=== PATIENT | female | born 1950 | race Two or more races ===

== ENCOUNTER 2021-06-02 18:04 | Emergency (ER) | payer MEDICARE, OTHER ==
[~2021-06-02] VITALS: Ht 162.6 cm; Wt 136.1 kg
[~2021-06-02 18:04] MED LIST: ALLO300T2 PO; AMLO-496 PO; ASPI325T4 PO; BUME1TAB3 PO; CHLO25TA2 PO; DOXA2TAB PO; ESCI-28 PO; FOLITAB22 PO; LEV50T PO; MAGN400T40 PO; METO-159 PO; POTA10TA51 PO; VALS320T15 PO
[2021-06-02 20:19] VITALS: BP 141/54
== END 2021-06-02 20:47 | disposition home or self-care (01) ==
LOC: EDBD 18:04 → ER 18:08
DX: R21 Rash and other nonspecific skin eruption (principal); I11.0 Hypertensive heart disease with heart failure; I50.9 Heart failure, unspecified; E03.9 Hypothyroidism, unspecified; J44.9 Chronic obstructive pulmonary disease, unspecified; E11.9 Type 2 diabetes mellitus without complications; Z87.891 Personal history of nicotine dependence; Z90.89 Acquired absence of other organs; Z79.82 Long term (current) use of aspirin; Z79.899 Other long term (current) drug therapy

== ENCOUNTER 2023-01-22 19:42 | Inpatient (IN) | payer MEDICARE, OTHER ==
[~2023-01-22] VITALS: Ht 162.6 cm; Wt 146.0 kg
[~2023-01-22 19:42] MED LIST changes: -AMLO-496 PO; +AMLO1TAB23 PO; -DOXA2TAB PO; +DOXA2TAB84 PO; -ESCI-28 PO; +ESCI1TAB36 PO; +VALS320T PO; -VALS320T15 PO
[2023-01-22] MEDS ORDERED: methylPREDNISolone SOD SUCC 40 MG/ML VL IV ONE (20:30)
[2023-01-22] MEDS ORDERED: MORPHINE SULFATE 4 MG/ML SYR/VIAL IV ONE (20:30)
[2023-01-22] MEDS ORDERED: FUROSEMIDE 40 MG/4 ML VIAL IV ONE (20:30)
[2023-01-22] MEDS ORDERED: ASPirin 81 mg TAB PO ONE (20:30)
[2023-01-22] MEDS ORDERED: IPRATROPIUM BROM 0.5 MG/2.5ML INH SOL NEB ONE (20:30)
[2023-01-22] MEDS ORDERED: ONDANSETRON HCL 4 MG/2 ML VIAL IV ONE (20:30)
[2023-01-22] MEDS ORDERED: ALBUTEROL SULF 2.5 MG/0.5ML(0.5%) NEB SOLN NEB ONE (20:30)
[2023-01-22] MEDS ORDERED: VANCOMYCIN IV SCH (20:30)
[2023-01-22] MEDS ORDERED: LORazepam 2MG/ML-1ML VIAL IV ONE (20:45)
[2023-01-22 20:50] VITALS: PULSE 90; RESP 18; O2SAT 96
[2023-01-22] MEDS ORDERED: VANCOMYCIN 1GM/250ML 250 ML IV ONE (21:00)
[2023-01-22 21:23] LABS: Base Excess 6.7 mmol/L (-2.0-2.0)
[2023-01-22] MEDS: PIPERACILLIN-TAZO 4.5GM 100 ML IV SCH (21:37)
[2023-01-22 21:38] LABS: Basophils # (auto) 0 10 ^3/uL (0-0.2); Basophils % (auto) 0.4 % (0.0-2.0); Eosinophils # (auto) 0 10 ^3/uL (0-0.8); Eosinophils % (auto) 0.2 % (0.0-7.0); Hematocrit 30.6 % (36.0-46.0); Hemoglobin 9.7 g/dL (12.2-16.2); Lymphocytes # (auto) 1.2 10 ^3/uL (0.4-5.4); Lymphocytes % (auto) 14.4 % (10.0-50.0); Mean Corpuscular Hemoglobin 30.1 pg (28.0-32.0); Mean Corpuscular Hgb Conc. 31.6 g/dL (32.0-36.0); Mean Corpuscular Volume 95.2 fL (80.0-100.0); Monocytes # (auto) 0.5 10 ^3/uL (0-1.3); Monocytes % (auto) 5.9 % (0.0-12.0); Neutrophils # (auto) 6.7 10 ^3/uL (1.6-8.6); Neutrophils % (auto) 79.1 % (37.0-80.0); Red Blood Cells 3.21 10^6/uL (4.0-5.20); White Blood Cell 8.4 10^3/uL (4.4-10.8)
[2023-01-22 21:47] LABS: Urine Bacteria FEW /hpf (None Seen); Urine Blood Negative /uL (Negative); Urine Clarity Clear (Clear); Urine Color Straw (Yellow); Urine Protein, UAD Negative (Negative); Urine Specific Gravity 1.008 (1.001-1.035); Urine Urobilinogen Normal (Negative); Urine WBC <1 /hpf (0 - 5)
[2023-01-22 21:59] LABS: Alanine Aminotransferase 11 U/L (7-40); Alkaline Phosphatase 111 U/L (46-116); Anion Gap 6.4 (5-15); Aspartate Aminotransferase 18 U/L (13-40); BUN/Creatinine Ratio 28.7 (10.0-20.0); Blood Urea Nitrogen 73 mg/dL (9-23); Calcium 9.2 mg/dL (8.7-10.4); Carbon Dioxide 30.6 mmol/L (20-30); Chloride 100 mmol/L (98-107); Glucose 96 mg/dL (74-106); Magnesium 2.6 mg/dL (1.6-2.6); Potassium 4.6 mmol/L (3.5-5.1); Sodium 137 mmol/L (136-145)
[2023-01-22 22:00] LABS: Albumin 4.3 g/dL (3.2-4.8); Bilirubin, Total 0.3 mg/dL (0.2-1.0); Total Protein 7.3 g/dL (5.7-8.2)
[2023-01-22 22:02] LABS: INR 1.07 (0.9-1.15); Partial Thromboplastin Time 32.2 SEC (24.5-34.5); Prothrombin Time 11.2 sec (9.3-11.8)
[2023-01-23] VITALS (12 sets, daily range): BP systolic 117–137; BP diastolic 50–66; PULSE 66–90; RESP 12–98; TEMP 97.8–98.7; O2SAT 91–98
[2023-01-23] MEDS ORDERED: VANCOMYCIN PER PHARMACY 0 MG IV SCH (00:45)
[2023-01-23] MEDS ORDERED: ONDANSETRON HCL 4 MG/2 ML VIAL IV PRN (00:45)
[2023-01-23] MEDS ORDERED: IPRATROPIUM BROM 0.5 MG/2.5ML INH SOL NEB PRN (00:45)
[2023-01-23] MEDS ORDERED: ALBUTEROL SULF 2.5 MG/0.5ML(0.5%) NEB SOLN NEB PRN (00:45)
[2023-01-23] MEDS ORDERED: ACETAMINOPHEN 325 MG TAB PO PRN (00:45)
[2023-01-23] MEDS ORDERED: MORPHINE SULFATE INJ 2 MG/ml SYRG IV PRN (00:45)
[2023-01-23] MEDS ORDERED: NITROGLYCERIN 0.4 MG SL TAB SL PRN (00:45)
[2023-01-23] MEDS: HYDROcodone-ACET 5/325MG TAB PO PRN ×2 (03:17→08:37)
[2023-01-23] MEDS: ACCU-CHEK COMFORT CURVE STRIP VI SCH ×4 (06:00→21:56)
[2023-01-23] MEDS: LEVOTHYROXINE SODIUM 50 MCG TAB PO SCH (06:20)
[2023-01-23] MEDS: FUROSEMIDE 20 MG/2 ML VIAL IV SCH ×2 (06:52→17:44)
[2023-01-23] MEDS: PIPERACILLIN-TAZO 4.5GM 100 ML IV SCH ×2 (06:52→18:34)
[2023-01-23] MEDS: InsuLIN REG 1unit/0.01ml Soln (100units/ml) SC SCH ×3 (06:54→17:44)
[2023-01-23] MEDS: PANTOPRAZOLE 40 MG TAB PO SCH (08:36)
[2023-01-23] MEDS: METOPROLOL TARTRATE 50 MG TAB PO SCH ×2 (08:37→21:56)
[2023-01-23] MEDS: methylPREDNISolone SOD SUCC 40 MG/ML VL IV SCH ×2 (08:38→21:55)
[2023-01-23] MEDS: amLODIPine BESYLATE 5 MG TAB PO SCH (08:38)
[2023-01-23] MEDS: VALSARTAN 80 MG TAB PO SCH (09:05)
[2023-01-23] MEDS ORDERED: BUMETANIDE 1 MG TAB PO SCH (10:00)
[2023-01-23] MEDS ORDERED: VANCOMYCIN 1GM/250ML 250 ML IV ONE ×2 (10:15→16:45)
[2023-01-23] MEDS ORDERED: IBUP-1455 PO (11:36)
[2023-01-23] MEDS ORDERED: GAB100C PO (11:36)
[2023-01-23 11:51] LABS: Basophils # (auto) 0 10 ^3/uL (0-0.2); Basophils % (auto) 0.1 % (0.0-2.0); Eosinophils # (auto) 0 10 ^3/uL (0-0.8); Hematocrit 29.3 % (36.0-46.0); Hemoglobin 9.2 g/dL (12.2-16.2); Lymphocytes # (auto) 0.5 10 ^3/uL (0.4-5.4); Lymphocytes % (auto) 4.2 % (10.0-50.0); Mean Corpuscular Hemoglobin 30.2 pg (28.0-32.0); Mean Corpuscular Hgb Conc. 31.5 g/dL (32.0-36.0); Mean Corpuscular Volume 96.1 fL (80.0-100.0); Monocytes # (auto) 0.1 10 ^3/uL (0-1.3); Monocytes % (auto) 0.8 % (0.0-12.0); Neutrophils # (auto) 10.3 10 ^3/uL (1.6-8.6); Neutrophils % (auto) 94.9 % (37.0-80.0); Red Blood Cells 3.05 10^6/uL (4.0-5.20); Red Cell Distribution Width 15.1 % (11.8-14.3); White Blood Cell 10.9 10^3/uL (4.4-10.8)
[2023-01-23 12:11] LABS: Alanine Aminotransferase 11 U/L (7-40); Albumin 4.1 g/dL (3.2-4.8); Alkaline Phosphatase 99 U/L (46-116); Calcium 8.9 mg/dL (8.5-10.1); Carbon Dioxide 29.7 mmol/L (20-30); Chloride 96 mmol/L (98-107)
[2023-01-23 12:12] LABS: Anion Gap 7.3 (5-15); Aspartate Aminotransferase 12 U/L (13-40); BUN/Creatinine Ratio 28.1 (10.0-20.0); Bilirubin, Total 0.3 mg/dL (0.2-1.0); Blood Urea Nitrogen 74 mg/dL (9-23); Magnesium 2.4 mg/dL (1.6-2.6); Potassium 5.5 mmol/L (3.5-5.1); Sodium 133 mmol/L (136-145); Total Protein 7.2 g/dL (5.7-8.2)
[2023-01-23 12:21] LABS: Glucose 435 mg/dL (74-106)
[2023-01-23] MEDS ORDERED: INSULIN LANTUS (GLARGINE) 1 /0.01ml (100units/ml) SC ONE (13:45)
[2023-01-23] MEDS ORDERED: DEXTROSE (50%) 50ML SYRG IV PRN (13:45)
[2023-01-23] MEDS ORDERED: SODIUM ZIRCONIUM CYCL 10 GM PAK PO ONE (13:45)
[2023-01-23] MEDS: HYDROcodone-ACET 7.5/325MG TAB PO PRN (21:01)
[2023-01-23] MEDS ORDERED: TEMAZEPAM 15 MG CAP PO PRN (21:15)
[2023-01-23] MEDS ORDERED: InsuLIN REG 1unit/0.01ml Soln (100units/ml) SC SCH (22:00)
[2023-01-23] MEDS: ALBUTEROL SULF 2.5 MG/0.5ML(0.5%) NEB SOLN NEB PRN (22:15)
[2023-01-24] VITALS (12 sets, daily range): BP systolic 133–143; BP diastolic 55–68; PULSE 57–70; RESP 16–100; TEMP 97.7–97.8; O2SAT 90–97
[2023-01-24] MEDS: HYDROcodone-ACET 7.5/325MG TAB PO PRN ×2 (02:38→19:07)
[2023-01-24] MEDS ORDERED: PIPERACILLIN-TAZOB 3.375GM 100 ML IV SCH (06:00)
[2023-01-24] MEDS: FUROSEMIDE 20 MG/2 ML VIAL IV SCH ×2 (06:00→19:07)
[2023-01-24] MEDS: LEVOTHYROXINE SODIUM 50 MCG TAB PO SCH (06:08)
[2023-01-24] MEDS: ACCU-CHEK COMFORT CURVE STRIP VI SCH ×4 (06:08→22:03)
[2023-01-24] MEDS: InsuLIN REG 1unit/0.01ml Soln (100units/ml) SC SCH ×4 (06:12→22:17)
[2023-01-24] MEDS ORDERED: INSULIN LANTUS (GLARGINE) 1 /0.01ml (100units/ml) SC SCH (07:00)
[2023-01-24] MEDS: ALBUTEROL SULF 2.5 MG/0.5ML(0.5%) NEB SOLN NEB SCH ×3 (07:18→19:19)
[2023-01-24] MEDS: IPRATROPIUM BROM 0.5 MG/2.5ML INH SOL NEB SCH ×3 (07:18→19:19)
[2023-01-24 07:40] LABS: Basophils # (auto) 0 10 ^3/uL (0-0.2); Basophils % (auto) 0.1 % (0.0-2.0); Eosinophils # (auto) 0 10 ^3/uL (0-0.8); Hemoglobin 8.8 g/dL (12.2-16.2); Lymphocytes # (auto) 0.5 10 ^3/uL (0.4-5.4); Lymphocytes % (auto) 3.6 % (10.0-50.0); Mean Corpuscular Hemoglobin 31.3 pg (28.0-32.0); Mean Corpuscular Hgb Conc. 32.5 g/dL (32.0-36.0); Mean Corpuscular Volume 96.1 fL (80.0-100.0); Monocytes # (auto) 0.3 10 ^3/uL (0-1.3); Monocytes % (auto) 2.2 % (0.0-12.0); Neutrophils # (auto) 14.4 10 ^3/uL (1.6-8.6); Neutrophils % (auto) 94.1 % (37.0-80.0); Red Blood Cells 2.81 10^6/uL (4.0-5.20); White Blood Cell 15.3 10^3/uL (4.4-10.8)
[2023-01-24 08:21] LABS: Alanine Aminotransferase 13 U/L (7-40); Albumin 4.1 g/dL (3.2-4.8); Alkaline Phosphatase 91 U/L (46-116); Anion Gap 6.6 (5-15); Aspartate Aminotransferase 13 U/L (13-40); BUN/Creatinine Ratio 29.5 (10.0-20.0); Calcium 8.9 mg/dL (8.5-10.1); Carbon Dioxide 29.4 mmol/L (20-30); Chloride 96 mmol/L (98-107); Cholesterol 118 mg/dL (< 200); Glucose 318 mg/dL (74-106); HDL Cholesterol 39 mg/dL (40-59); LDL Cholesterol 61 mg/dL (< 100); Magnesium 2.4 mg/dL (1.6-2.6); Potassium 5.5 mmol/L (3.5-5.1); Sodium 132 mmol/L (136-145); Triglycerides 85 mg/dL (< 150)
[2023-01-24 08:22] LABS: Bilirubin, Total 0.2 mg/dL (0.2-1.0); Total Protein 7.1 g/dL (5.7-8.2)
[2023-01-24 08:25] LABS: Blood Urea Nitrogen 88 mg/dL (9-23)
[2023-01-24 08:28] LABS: COVID19 ANTIGEN SOFIA FIA NEGATIVE (NEGATIVE)
[2023-01-24 08:36] LABS: Rapid Influenza A Negative (Negative); Rapid Influenza B Negative (Negative)
[2023-01-24] MEDS: SODIUM ZIRCONIUM CYCL 10 GM PAK PO SCH ×3 (09:12→22:11)
[2023-01-24] MEDS: METOPROLOL TARTRATE 50 MG TAB PO SCH ×2 (12:14→22:00)
[2023-01-24] MEDS: amLODIPine BESYLATE 5 MG TAB PO SCH (12:14)
[2023-01-24] MEDS: CITALOPRAM HYDROBR 20 MG TAB PO SCH (12:14)
[2023-01-24] MEDS: VALSARTAN 80 MG TAB PO SCH (12:15)
[2023-01-24] MEDS: PANTOPRAZOLE 40 MG TAB PO SCH (12:15)
[2023-01-24] MEDS: methylPREDNISolone SOD SUCC 40 MG/ML VL IV SCH ×2 (12:15→22:00)
[2023-01-24] MEDS ORDERED: DEXTROSE (50%) 50ML SYRG IV PRN (15:30)
[2023-01-24] MEDS: CEFEPIME 2GM/50ML NS 50 ML IV SCH (19:08)
[2023-01-24] MEDS ORDERED: LINEZOLID 600MG/300ML 300 ML IV SCH ×2 (22:00)
[2023-01-25] VITALS (14 sets, daily range): BP systolic 101–141; BP diastolic 38–62; PULSE 54–70; RESP 17–20; TEMP 97.4–98; O2SAT 90–98
[2023-01-25] MEDS: LINEZOLID 600MG/300ML 300 ML IV SCH ×2 (00:32→13:00)
[2023-01-25 05:51] LABS: Basophils # (auto) 0 10 ^3/uL (0-0.2); Basophils % (auto) 0.1 % (0.0-2.0); Eosinophils # (auto) 0 10 ^3/uL (0-0.8); Hematocrit 28.4 % (36.0-46.0); Hemoglobin 9.2 g/dL (12.2-16.2); Lymphocytes # (auto) 0.5 10 ^3/uL (0.4-5.4); Lymphocytes % (auto) 3.6 % (10.0-50.0); Mean Corpuscular Hemoglobin 30.7 pg (28.0-32.0); Mean Corpuscular Hgb Conc. 32.3 g/dL (32.0-36.0); Mean Corpuscular Volume 95.2 fL (80.0-100.0); Monocytes # (auto) 0.3 10 ^3/uL (0-1.3); Monocytes % (auto) 1.7 % (0.0-12.0); Neutrophils # (auto) 14.1 10 ^3/uL (1.6-8.6); Neutrophils % (auto) 94.6 % (37.0-80.0); Red Blood Cells 2.98 10^6/uL (4.0-5.20); Red Cell Distribution Width 14.6 % (11.8-14.3); White Blood Cell 14.9 10^3/uL (4.4-10.8)
[2023-01-25 06:06] LABS: Anion Gap 7.6 (5-15); Carbon Dioxide 30.4 mmol/L (20-30); Chloride 91 mmol/L (98-107); Potassium 4.7 mmol/L (3.5-5.1); Sodium 129 mmol/L (136-145)
[2023-01-25 06:07] LABS: Calcium 8.9 mg/dL (8.7-10.4)
[2023-01-25 06:12] LABS: BUN/Creatinine Ratio 30.8 (10.0-20.0); Glucose 348 mg/dL (74-106); Magnesium 2.5 mg/dL (1.6-2.6)
[2023-01-25] MEDS: SODIUM ZIRCONIUM CYCL 10 GM PAK PO SCH ×3 (06:26→21:09)
[2023-01-25] MEDS: HYDROcodone-ACET 7.5/325MG TAB PO PRN ×2 (06:27→21:27)
[2023-01-25 06:31] LABS: Blood Urea Nitrogen 108 mg/dL (9-23)
[2023-01-25] MEDS: FUROSEMIDE 20 MG/2 ML VIAL IV SCH (06:32)
[2023-01-25] MEDS: CEFEPIME 2GM/50ML NS 50 ML IV SCH ×2 (06:33→18:05)
[2023-01-25] MEDS: ALBUTEROL SULF 2.5 MG/0.5ML(0.5%) NEB SOLN NEB SCH ×3 (06:49→18:46)
[2023-01-25] MEDS: IPRATROPIUM BROM 0.5 MG/2.5ML INH SOL NEB SCH ×3 (06:49→18:46)
[2023-01-25] MEDS: ACCU-CHEK COMFORT CURVE STRIP VI SCH ×4 (06:59→18:04)
[2023-01-25] MEDS ORDERED: INSULIN LANTUS (GLARGINE) 1 /0.01ml (100units/ml) SC SCH (07:00)
[2023-01-25] MEDS: InsuLIN REG 1unit/0.01ml Soln (100units/ml) SC SCH ×5 (07:05→21:34)
[2023-01-25] MEDS: LEVOTHYROXINE SODIUM 50 MCG TAB PO SCH (07:16)
[2023-01-25] MEDS: PANTOPRAZOLE 40 MG TAB PO SCH (10:00)
[2023-01-25] MEDS: amLODIPine BESYLATE 5 MG TAB PO SCH (10:00)
[2023-01-25] MEDS: CITALOPRAM HYDROBR 20 MG TAB PO SCH (10:00)
[2023-01-25] MEDS: METOPROLOL TARTRATE 50 MG TAB PO SCH ×2 (10:00→21:32)
[2023-01-25] MEDS ORDERED: SODIUM CHLORIDE 0.9% 1,000 ML IV ONE (14:00)
[2023-01-26] VITALS (14 sets, daily range): BP systolic 124–139; BP diastolic 47–58; PULSE 46–98; RESP 16–26; TEMP 97.7–98.2; O2SAT 92–100
[2023-01-26] MEDS: LINEZOLID 600MG/300ML 300 ML IV SCH (01:18)
[2023-01-26] MEDS: CEFEPIME 2GM/50ML NS 50 ML IV SCH (06:18)
[2023-01-26] MEDS: INSULIN LANTUS (GLARGINE) 1 /0.01ml (100units/ml) SC SCH (06:20)
[2023-01-26] MEDS: ACCU-CHEK COMFORT CURVE STRIP VI SCH ×4 (06:20→22:25)
[2023-01-26] MEDS: InsuLIN REG 1unit/0.01ml Soln (100units/ml) SC SCH ×7 (06:21→22:26)
[2023-01-26] MEDS: LEVOTHYROXINE SODIUM 50 MCG TAB PO SCH (06:22)
[2023-01-26] MEDS: IPRATROPIUM BROM 0.5 MG/2.5ML INH SOL NEB SCH ×3 (06:33→19:49)
[2023-01-26] MEDS: ALBUTEROL SULF 2.5 MG/0.5ML(0.5%) NEB SOLN NEB SCH ×3 (06:33→19:49)
[2023-01-26 06:53] LABS: Basophils # (auto) 0 10 ^3/uL (0-0.2); Eosinophils # (auto) 0 10 ^3/uL (0-0.8); Hematocrit 27.1 % (36.0-46.0); Hemoglobin 8.8 g/dL (12.2-16.2); Lymphocytes # (auto) 0.9 10 ^3/uL (0.4-5.4); Lymphocytes % (auto) 6.7 % (10.0-50.0); Mean Corpuscular Hemoglobin 30.8 pg (28.0-32.0); Mean Corpuscular Hgb Conc. 32.7 g/dL (32.0-36.0); Mean Corpuscular Volume 94.2 fL (80.0-100.0); Monocytes # (auto) 1.1 10 ^3/uL (0-1.3); Neutrophils # (auto) 11.4 10 ^3/uL (1.6-8.6); Neutrophils % (auto) 85.3 % (37.0-80.0); Red Blood Cells 2.87 10^6/uL (4.0-5.20); Red Cell Distribution Width 14.6 % (11.8-14.3); White Blood Cell 13.4 10^3/uL (4.4-10.8)
[2023-01-26 07:05] LABS: Alanine Aminotransferase 12 U/L (7-40); Albumin 3.8 g/dL (3.2-4.8); Alkaline Phosphatase 77 U/L (46-116); Aspartate Aminotransferase 9 U/L (13-40); BUN/Creatinine Ratio 28.1 (10.0-20.0); Calcium 8.1 mg/dL (8.5-10.1); Chloride 93 mmol/L (98-107); Glucose 235 mg/dL (74-106); Magnesium 2.6 mg/dL (1.6-2.6); Potassium 4.3 mmol/L (3.5-5.1); Sodium 130 mmol/L (136-145)
[2023-01-26 07:06] LABS: Bilirubin, Total 0.2 mg/dL (0.2-1.0); Total Protein 6.6 g/dL (5.7-8.2)
[2023-01-26 07:24] LABS: Blood Urea Nitrogen 114 mg/dL (9-23)
[2023-01-26 07:34] LABS: Anion Gap 8 (5-15); Carbon Dioxide 29 mmol/L (20-30)
[2023-01-26] MEDS: methylPREDNISolone SOD SUCC 40 MG/ML VL IV SCH (10:23)
[2023-01-26] MEDS: CITALOPRAM HYDROBR 20 MG TAB PO SCH (10:23)
[2023-01-26] MEDS: PANTOPRAZOLE 40 MG TAB PO SCH (10:24)
[2023-01-26] MEDS: METOPROLOL TARTRATE 50 MG TAB PO SCH ×2 (10:24→22:24)
[2023-01-26] MEDS: amLODIPine BESYLATE 5 MG TAB PO SCH (10:24)
[2023-01-26] MEDS ORDERED: LACTULOSE 20Gm/30ML SOLN PO ONE (12:30)
[2023-01-26] MEDS ORDERED: levoFLOXacin 250MG 50 ML IV SCH (12:30)
[2023-01-26 15:42] LABS: % Iron Saturation 10.2 % (15-50)
[2023-01-26] MEDS ORDERED: SODIUM FERR GLUC 62.5MG/5ML 125 MG in SODIUM CHL 0.9% 100 ML IV ONE (17:00)
[2023-01-26] MEDS: FUROSEMIDE 100 MG/10ML VIAL IV SCH (18:14)
[2023-01-26] MEDS: CALCIUM ACETATE 667 MG CAP PO SCH (18:15)
[2023-01-26] MEDS ORDERED: EPOETIN ALFA-EPBX 4,000 UNIT/ML VIAL SC ONE (21:00)
[2023-01-27] VITALS (18 sets, daily range): BP systolic 129–140; BP diastolic 58–88; PULSE 54–74; RESP 16–22; TEMP 97.7–99.6; O2SAT 93–99
[2023-01-27 05:42] LABS: Alanine Aminotransferase 14 U/L (7-40); Albumin 3.8 g/dL (3.2-4.8); Alkaline Phosphatase 84 U/L (46-116); Anion Gap 6 (5-15); Aspartate Aminotransferase 9 U/L (13-40); BUN/Creatinine Ratio 27.9 (10.0-20.0); Bilirubin, Total 0.3 mg/dL (0.2-1.0); Carbon Dioxide 30 mmol/L (20-30); Chloride 95 mmol/L (98-107); Glucose 181 mg/dL (74-106); Magnesium 2.6 mg/dL (1.6-2.6); Potassium 4.2 mmol/L (3.5-5.1); Sodium 131 mmol/L (136-145); Total Protein 6.6 g/dL (5.7-8.2)
[2023-01-27 05:44] LABS: Calcium 8.2 mg/dL (8.7-10.4)
[2023-01-27] MEDS: ACCU-CHEK COMFORT CURVE STRIP VI SCH ×4 (06:02→21:42)
[2023-01-27 06:05] LABS: Basophils # (auto) 0 10 ^3/uL (0-0.2); Basophils % (auto) 0.1 % (0.0-2.0); Eosinophils # (auto) 0 10 ^3/uL (0-0.8); Eosinophils % (auto) 0.1 % (0.0-7.0); Hematocrit 27.8 % (36.0-46.0); Hemoglobin 9.2 g/dL (12.2-16.2); Lymphocytes # (auto) 0.8 10 ^3/uL (0.4-5.4); Lymphocytes % (auto) 5.7 % (10.0-50.0); Mean Corpuscular Hemoglobin 31.2 pg (28.0-32.0); Mean Corpuscular Volume 94.5 fL (80.0-100.0); Monocytes # (auto) 0.9 10 ^3/uL (0-1.3); Monocytes % (auto) 6.6 % (0.0-12.0); Neutrophils # (auto) 12.3 10 ^3/uL (1.6-8.6); Neutrophils % (auto) 87.5 % (37.0-80.0); Red Blood Cells 2.94 10^6/uL (4.0-5.20); Red Cell Distribution Width 14.5 % (11.8-14.3)
[2023-01-27] MEDS: INSULIN LANTUS (GLARGINE) 1 /0.01ml (100units/ml) SC SCH (06:05)
[2023-01-27] MEDS: InsuLIN REG 1unit/0.01ml Soln (100units/ml) SC SCH ×7 (06:08→22:10)
[2023-01-27] MEDS: LEVOTHYROXINE SODIUM 50 MCG TAB PO SCH (06:09)
[2023-01-27] MEDS: FUROSEMIDE 100 MG/10ML VIAL IV SCH ×2 (06:09→17:14)
[2023-01-27] MEDS: ALBUTEROL SULF 2.5 MG/0.5ML(0.5%) NEB SOLN NEB SCH ×3 (06:18→18:16)
[2023-01-27] MEDS: IPRATROPIUM BROM 0.5 MG/2.5ML INH SOL NEB SCH ×3 (06:18→18:16)
[2023-01-27 06:48] LABS: Blood Urea Nitrogen 97 mg/dL (9-23)
[2023-01-27] MEDS ORDERED: SODIUM CHL 0.9% 1000 ML BAG XX ONE (07:00)
[2023-01-27] MEDS ORDERED: FLEET ENEMA(ADULT) 135 ML PR ONE (08:15)
[2023-01-27] MEDS: ALBUTEROL SULF 2.5 MG/0.5ML(0.5%) NEB SOLN NEB PRN (09:45)
[2023-01-27] MEDS: METOPROLOL TARTRATE 50 MG TAB PO SCH ×2 (10:00→21:43)
[2023-01-27] MEDS: methylPREDNISolone SOD SUCC 40 MG/ML VL IV SCH (10:02)
[2023-01-27] MEDS: CALCIUM ACETATE 667 MG CAP PO SCH ×3 (10:02→17:14)
[2023-01-27] MEDS: CITALOPRAM HYDROBR 20 MG TAB PO SCH (10:02)
[2023-01-27] MEDS: PANTOPRAZOLE 40 MG TAB PO SCH (10:03)
[2023-01-27] MEDS: DOCUSATE SOD 100 MG CAP PO SCH ×2 (10:03→21:43)
[2023-01-27] MEDS: amLODIPine BESYLATE 5 MG TAB PO SCH (10:04)
[2023-01-27] MEDS: SODIUM FERR GLUC 62.5MG/5ML 125 MG in SODIUM CHL 0.9% 100 ML IV SCH (12:23)
[2023-01-27] MEDS: FLUTICASONE PROP NASAL SPR 0.05 % (50MCG) 16GM EACHNOSTRI SCH ×2 (12:23→21:43)
[2023-01-27 13:18] LABS: Base Excess -0.4 mmol/L (-2.0-2.0)
[2023-01-27] MEDS ORDERED: ALBUMIN 25% 100 ML IV ONE (13:30)
[2023-01-27] MEDS: LACTULOSE 20Gm/30ML SOLN PO PRN (14:31)
[2023-01-27] MEDS: levoFLOXacin 750MG 150 ML IV SCH (17:14)
[2023-01-27] MEDS ORDERED: EPOETIN ALFA-EPBX 4,000 UNIT/ML VIAL SC ONE (21:00)
[2023-01-28] VITALS (16 sets, daily range): BP systolic 112–158; BP diastolic 53–74; PULSE 55–78; RESP 14–22; TEMP 97.8–98.5; O2SAT 93–99
[2023-01-28] MEDS: LEVOTHYROXINE SODIUM 50 MCG TAB PO SCH (06:05)
[2023-01-28] MEDS: FUROSEMIDE 100 MG/10ML VIAL IV SCH ×2 (06:05→18:12)
[2023-01-28] MEDS: InsuLIN REG 1unit/0.01ml Soln (100units/ml) SC SCH ×7 (06:06→22:22)
[2023-01-28] MEDS: IPRATROPIUM BROM 0.5 MG/2.5ML INH SOL NEB SCH ×3 (06:15→18:24)
[2023-01-28] MEDS: ALBUTEROL SULF 2.5 MG/0.5ML(0.5%) NEB SOLN NEB SCH ×3 (06:15→18:24)
[2023-01-28] MEDS: INSULIN LANTUS (GLARGINE) 1 /0.01ml (100units/ml) SC SCH (06:15)
[2023-01-28] MEDS: ACCU-CHEK COMFORT CURVE STRIP VI SCH ×4 (06:16→22:06)
[2023-01-28 06:45] LABS: Basophils # (auto) 0 10 ^3/uL (0-0.2); Basophils % (auto) 0.2 % (0.0-2.0); Eosinophils # (auto) 0 10 ^3/uL (0-0.8); Hematocrit 27.7 % (36.0-46.0); Lymphocytes # (auto) 0.9 10 ^3/uL (0.4-5.4); Lymphocytes % (auto) 7.2 % (10.0-50.0); Mean Corpuscular Hemoglobin 30.6 pg (28.0-32.0); Mean Corpuscular Hgb Conc. 32.7 g/dL (32.0-36.0); Mean Corpuscular Volume 93.8 fL (80.0-100.0); Monocytes % (auto) 7.5 % (0.0-12.0); Neutrophils # (auto) 10.8 10 ^3/uL (1.6-8.6); Neutrophils % (auto) 85.1 % (37.0-80.0); Nucleated Red Blood Cells % 0.1 %; Red Blood Cells 2.95 10^6/uL (4.0-5.20); Red Cell Distribution Width 14.7 % (11.8-14.3); White Blood Cell 12.7 10^3/uL (4.4-10.8)
[2023-01-28 07:10] LABS: Alanine Aminotransferase 11 U/L (7-40); Albumin 3.8 g/dL (3.2-4.8); Alkaline Phosphatase 76 U/L (46-116); Aspartate Aminotransferase 8 U/L (13-40); BUN/Creatinine Ratio 30.5 (10.0-20.0); Calcium 8.5 mg/dL (8.5-10.1); Chloride 95 mmol/L (98-107); Glucose 171 mg/dL (74-106); Magnesium 2.4 mg/dL (1.6-2.6); Potassium 4.5 mmol/L (3.5-5.1); Sodium 131 mmol/L (136-145)
[2023-01-28 07:11] LABS: Bilirubin, Total 0.3 mg/dL (0.2-1.0); Total Protein 6.5 g/dL (5.7-8.2)
[2023-01-28 07:12] LABS: Anion Gap 11 (5-15); Carbon Dioxide 25 mmol/L (20-30)
[2023-01-28 07:16] LABS: Blood Urea Nitrogen 108 mg/dL (9-23)
[2023-01-28] MEDS: PANTOPRAZOLE 40 MG TAB PO SCH (09:41)
[2023-01-28] MEDS: CALCIUM ACETATE 667 MG CAP PO SCH (09:41)
[2023-01-28] MEDS: CITALOPRAM HYDROBR 20 MG TAB PO SCH (09:41)
[2023-01-28] MEDS: DOCUSATE SOD 100 MG CAP PO SCH ×2 (09:41→22:14)
[2023-01-28] MEDS: FLUTICASONE PROP NASAL SPR 0.05 % (50MCG) 16GM EACHNOSTRI SCH ×2 (09:42→22:24)
[2023-01-28] MEDS: METOPROLOL TARTRATE 50 MG TAB PO SCH ×2 (09:42→22:15)
[2023-01-28] MEDS: amLODIPine BESYLATE 5 MG TAB PO SCH (09:42)
[2023-01-28] MEDS ORDERED: HEPARIN SODIUM (PORCINE) 5000 UNITS/ML 1ML VIAL IV ONE (11:00)
[2023-01-28] MEDS: SODIUM FERR GLUC 62.5MG/5ML 125 MG in SODIUM CHL 0.9% 100 ML IV SCH (13:50)
[2023-01-28] MEDS: SEVELAMER 800 MG TAB PO SCH ×2 (13:50→18:12)
[2023-01-29] VITALS (15 sets, daily range): BP systolic 146–155; BP diastolic 51–71; PULSE 57–80; RESP 12–20; TEMP 98.4–99.6; O2SAT 91–99
[2023-01-29 06:02] LABS: Basophils # (auto) 0 10 ^3/uL (0-0.2); Basophils % (auto) 0.3 % (0.0-2.0); Eosinophils # (auto) 0.1 10 ^3/uL (0-0.8); Eosinophils % (auto) 0.5 % (0.0-7.0); Hematocrit 28.8 % (36.0-46.0); Hemoglobin 9.5 g/dL (12.2-16.2); Lymphocytes # (auto) 0.9 10 ^3/uL (0.4-5.4); Lymphocytes % (auto) 7.9 % (10.0-50.0); Mean Corpuscular Hgb Conc. 32.9 g/dL (32.0-36.0); Mean Corpuscular Volume 94.2 fL (80.0-100.0); Monocytes # (auto) 1.1 10 ^3/uL (0-1.3); Monocytes % (auto) 9.1 % (0.0-12.0); Neutrophils # (auto) 9.7 10 ^3/uL (1.6-8.6); Neutrophils % (auto) 82.2 % (37.0-80.0); Red Blood Cells 3.06 10^6/uL (4.0-5.20); Red Cell Distribution Width 14.8 % (11.8-14.3); White Blood Cell 11.8 10^3/uL (4.4-10.8)
[2023-01-29] MEDS: InsuLIN REG 1unit/0.01ml Soln (100units/ml) SC SCH ×7 (06:05→22:26)
[2023-01-29] MEDS: FUROSEMIDE 100 MG/10ML VIAL IV SCH ×2 (06:05→18:33)
[2023-01-29] MEDS: ACCU-CHEK COMFORT CURVE STRIP VI SCH ×4 (06:05→22:17)
[2023-01-29] MEDS: LEVOTHYROXINE SODIUM 50 MCG TAB PO SCH (06:05)
[2023-01-29] MEDS: INSULIN LANTUS (GLARGINE) 1 /0.01ml (100units/ml) SC SCH (06:06)
[2023-01-29 06:35] LABS: Anion Gap 9 (5-15); Carbon Dioxide 28 mmol/L (20-30); Chloride 99 mmol/L (98-107); Potassium 4.2 mmol/L (3.5-5.1); Sodium 136 mmol/L (136-145)
[2023-01-29 06:36] LABS: Calcium 8.6 mg/dL (8.7-10.4)
[2023-01-29 06:41] LABS: BUN/Creatinine Ratio 32.5 (10.0-20.0); Glucose 117 mg/dL (74-106)
[2023-01-29 06:46] LABS: Blood Urea Nitrogen 82 mg/dL (9-23)
[2023-01-29] MEDS: ALBUTEROL SULF 2.5 MG/0.5ML(0.5%) NEB SOLN NEB SCH ×3 (06:55→19:32)
[2023-01-29] MEDS: IPRATROPIUM BROM 0.5 MG/2.5ML INH SOL NEB SCH ×3 (06:55→19:32)
[2023-01-29] MEDS: SEVELAMER 800 MG TAB PO SCH ×3 (08:00→18:33)
[2023-01-29] MEDS: FLUTICASONE PROP NASAL SPR 0.05 % (50MCG) 16GM EACHNOSTRI SCH ×2 (10:55→22:16)
[2023-01-29] MEDS: amLODIPine BESYLATE 5 MG TAB PO SCH (10:55)
[2023-01-29] MEDS: PANTOPRAZOLE 40 MG TAB PO SCH (10:55)
[2023-01-29] MEDS: METOPROLOL TARTRATE 50 MG TAB PO SCH ×2 (10:56→22:17)
[2023-01-29] MEDS: CITALOPRAM HYDROBR 20 MG TAB PO SCH (10:56)
[2023-01-29] MEDS: DOCUSATE SOD 100 MG CAP PO SCH ×2 (10:56→22:17)
[2023-01-29] MEDS: HYDROcodone-ACET 7.5/325MG TAB PO PRN ×2 (11:09→22:17)
[2023-01-29] MEDS: SODIUM FERR GLUC 62.5MG/5ML 125 MG in SODIUM CHL 0.9% 100 ML IV SCH (13:19)
[2023-01-29] MEDS: levoFLOXacin 750MG 150 ML IV SCH (16:24)
[2023-01-29] MEDS: LACTULOSE 20Gm/30ML SOLN PO PRN (18:33)
[2023-01-30] VITALS (15 sets, daily range): BP systolic 125–157; BP diastolic 50–56; PULSE 56–83; RESP 13–18; TEMP 99–99.4; O2SAT 94–99
[2023-01-30 06:41] LABS: Basophils # (auto) 0 10 ^3/uL (0-0.2); Basophils % (auto) 0.1 % (0.0-2.0); Eosinophils # (auto) 0 10 ^3/uL (0-0.8); Eosinophils % (auto) 0.1 % (0.0-7.0); Hematocrit 29.6 % (36.0-46.0); Hemoglobin 9.6 g/dL (12.2-16.2); Mean Corpuscular Hemoglobin 31.2 pg (28.0-32.0); Mean Corpuscular Hgb Conc. 32.5 g/dL (32.0-36.0); Monocytes % (auto) 7.2 % (0.0-12.0); Neutrophils # (auto) 12.3 10 ^3/uL (1.6-8.6); Neutrophils % (auto) 85.6 % (37.0-80.0); Nucleated Red Blood Cells % 0.1 %; Red Blood Cells 3.09 10^6/uL (4.0-5.20); Red Cell Distribution Width 14.9 % (11.8-14.3); White Blood Cell 14.4 10^3/uL (4.4-10.8)
[2023-01-30] MEDS: FUROSEMIDE 100 MG/10ML VIAL IV SCH ×2 (06:41→17:19)
[2023-01-30] MEDS: ACCU-CHEK COMFORT CURVE STRIP VI SCH ×4 (06:41→21:30)
[2023-01-30] MEDS: LEVOTHYROXINE SODIUM 50 MCG TAB PO SCH (06:41)
[2023-01-30] MEDS: INSULIN LANTUS (GLARGINE) 1 /0.01ml (100units/ml) SC SCH (06:55)
[2023-01-30] MEDS: InsuLIN REG 1unit/0.01ml Soln (100units/ml) SC SCH ×7 (06:56→21:39)
[2023-01-30] MEDS: IPRATROPIUM BROM 0.5 MG/2.5ML INH SOL NEB SCH ×3 (06:56→18:01)
[2023-01-30] MEDS: ALBUTEROL SULF 2.5 MG/0.5ML(0.5%) NEB SOLN NEB SCH ×3 (06:56→18:01)
[2023-01-30] MEDS: HYDROcodone-ACET 7.5/325MG TAB PO PRN (07:43)
[2023-01-30] MEDS: SEVELAMER 800 MG TAB PO SCH ×3 (07:43→17:19)
[2023-01-30] MEDS ORDERED: LACTULOSE 20Gm/30ML SOLN PO ONE (09:15)
[2023-01-30] MEDS: CITALOPRAM HYDROBR 20 MG TAB PO SCH (09:36)
[2023-01-30] MEDS: PANTOPRAZOLE 40 MG TAB PO SCH (09:37)
[2023-01-30] MEDS: amLODIPine BESYLATE 5 MG TAB PO SCH (09:37)
[2023-01-30] MEDS: DOCUSATE SOD 100 MG CAP PO SCH ×2 (09:38→21:29)
[2023-01-30] MEDS: FLUTICASONE PROP NASAL SPR 0.05 % (50MCG) 16GM EACHNOSTRI SCH ×2 (09:38→21:29)
[2023-01-30] MEDS: METOPROLOL TARTRATE 50 MG TAB PO SCH ×2 (09:38→21:29)
[2023-01-30 11:32] LABS: Alkaline Phosphatase 72 U/L (46-116); Calcium 8.9 mg/dL (8.5-10.1); Carbon Dioxide 27 mmol/L (20-30); Glucose 201 mg/dL (74-106)
[2023-01-30 11:34] LABS: Aspartate Aminotransferase 56 U/L (13-40); Bilirubin, Total 0.4 mg/dL (0.2-1.0)
[2023-01-30 11:35] LABS: Total Protein 6.7 g/dL (5.7-8.2)
[2023-01-30] MEDS ORDERED: HYDROcodone-ACET 5/325MG TAB PO PRN (12:00)
[2023-01-30] MEDS ORDERED: cefTRIAXone 1GM/50ML D5W 50 ML IV ONE (12:00)
[2023-01-30] MEDS ORDERED: AMPICILLIN INJ 1 GM in SODIUM CHL 0.9% 100 ML IV SCH (12:00)
[2023-01-30] MEDS: SODIUM FERR GLUC 62.5MG/5ML 125 MG in SODIUM CHL 0.9% 100 ML IV SCH (12:10)
[2023-01-30 12:52] LABS: Hepatitis B Core IgM Negative; Hepatitis C Antibody Negative (Negative)
[2023-01-30] MEDS: ACETAMINOPHEN 325 MG TAB PO PRN (13:06)
[2023-01-30 13:07] LABS: Hepatitis B Surface Antigen Negative (Negative)
[2023-01-30 13:49] LABS: Protein, Urine 86.2 mg/dL (0.0-11.9)
[2023-01-30 13:50] LABS: Creatinine, Urine 40.8 mg/dL (30.0-125.0)
[2023-01-30 14:09] LABS: Urine Bacteria FEW /hpf (None Seen); Urine Blood 1+ /uL (Negative); Urine Clarity Clear (Clear); Urine Color Colorless (Yellow); Urine Hyaline Cast FEW /lpf (0 - 2); Urine Mucus FEW (None Seen); Urine Protein, UAD 1+ (Negative); Urine Specific Gravity 1.012 (1.001-1.035); Urine Urobilinogen Normal (Negative); Urine WBC 1 /hpf (0 - 5); Urine pH 5.5 (5.0-8.0)
[2023-01-30] MEDS: AMPICILLIN INJ 1 GM in SODIUM CHL 0.9% 100 ML IV SCH ×2 (15:33→21:29)
[2023-01-30 16:11] LABS: Albumin 3.9 g/dL (3.2-4.8); Anion Gap 12 (5-15); BUN/Creatinine Ratio 30.8 (10.0-20.0); Chloride 98 mmol/L (98-107); Potassium 3.5 mmol/L (3.5-5.1); Sodium 137 mmol/L (136-145)
[2023-01-30 16:12] LABS: Alanine Aminotransferase 9 U/L (7-40); Blood Urea Nitrogen 68 mg/dL (9-23)
[2023-01-30] MEDS: HYDROcodone-ACET 5/325MG TAB PO PRN (17:18)
[2023-01-31] VITALS (16 sets, daily range): BP systolic 135–166; BP diastolic 64–76; PULSE 58–96; RESP 13–20; TEMP 98.3–99.1; O2SAT 91–99
[2023-01-31] MEDS: HYDROcodone-ACET 5/325MG TAB PO PRN ×3 (00:12→21:29)
[2023-01-31] MEDS: AMPICILLIN INJ 1 GM in SODIUM CHL 0.9% 100 ML IV SCH ×3 (06:14→22:02)
[2023-01-31 06:15] LABS: Basophils # (auto) 0 10 ^3/uL (0-0.2); Basophils % (auto) 0.1 % (0.0-2.0); Eosinophils # (auto) 0.1 10 ^3/uL (0-0.8); Eosinophils % (auto) 0.3 % (0.0-7.0); Hematocrit 30.7 % (36.0-46.0); Hemoglobin 9.8 g/dL (12.2-16.2); Lymphocytes # (auto) 0.9 10 ^3/uL (0.4-5.4); Lymphocytes % (auto) 5.7 % (10.0-50.0); Mean Corpuscular Hemoglobin 30.4 pg (28.0-32.0); Mean Corpuscular Volume 95.2 fL (80.0-100.0); Monocytes # (auto) 1.1 10 ^3/uL (0-1.3); Monocytes % (auto) 6.5 % (0.0-12.0); Neutrophils # (auto) 14.4 10 ^3/uL (1.6-8.6); Neutrophils % (auto) 87.4 % (37.0-80.0); Nucleated Red Blood Cells % 0.1 %; Red Blood Cells 3.22 10^6/uL (4.0-5.20); Red Cell Distribution Width 14.7 % (11.8-14.3); White Blood Cell 16.5 10^3/uL (4.4-10.8)
[2023-01-31] MEDS: FUROSEMIDE 100 MG/10ML VIAL IV SCH ×2 (06:22→18:46)
[2023-01-31] MEDS: LEVOTHYROXINE SODIUM 50 MCG TAB PO SCH (06:22)
[2023-01-31] MEDS: IPRATROPIUM BROM 0.5 MG/2.5ML INH SOL NEB SCH ×3 (06:23→19:07)
[2023-01-31] MEDS: ALBUTEROL SULF 2.5 MG/0.5ML(0.5%) NEB SOLN NEB SCH ×3 (06:23→19:07)
[2023-01-31 06:30] LABS: Anion Gap 7 (5-15); Calcium 9.1 mg/dL (8.7-10.4); Carbon Dioxide 33 mmol/L (20-30); Chloride 99 mmol/L (98-107); Potassium 3.5 mmol/L (3.5-5.1); Sodium 139 mmol/L (136-145)
[2023-01-31] MEDS: InsuLIN REG 1unit/0.01ml Soln (100units/ml) SC SCH ×7 (06:33→21:57)
[2023-01-31] MEDS: ACCU-CHEK COMFORT CURVE STRIP VI SCH ×4 (06:33→21:56)
[2023-01-31] MEDS: INSULIN LANTUS (GLARGINE) 1 /0.01ml (100units/ml) SC SCH (06:33)
[2023-01-31 06:36] LABS: BUN/Creatinine Ratio 29.2 (10.0-20.0); Glucose 112 mg/dL (74-106)
[2023-01-31 06:37] LABS: Blood Urea Nitrogen 57 mg/dL (9-23); Magnesium 2.1 mg/dL (1.6-2.6)
[2023-01-31] MEDS: SEVELAMER 800 MG TAB PO SCH ×3 (08:24→18:00)
[2023-01-31] MEDS: cefTRIAXone 1GM/50ML D5W 50 ML IV SCH (08:24)
[2023-01-31] MEDS: DOCUSATE SOD 100 MG CAP PO SCH ×2 (11:56→21:29)
[2023-01-31] MEDS: FLUTICASONE PROP NASAL SPR 0.05 % (50MCG) 16GM EACHNOSTRI SCH ×2 (11:56→22:01)
[2023-01-31] MEDS: LACTULOSE 20Gm/30ML SOLN PO SCH ×4 (11:56→23:26)
[2023-01-31] MEDS: amLODIPine BESYLATE 5 MG TAB PO SCH (11:57)
[2023-01-31] MEDS: CITALOPRAM HYDROBR 20 MG TAB PO SCH (11:57)
[2023-01-31] MEDS: METOPROLOL TARTRATE 50 MG TAB PO SCH ×2 (11:57→21:30)
[2023-01-31] MEDS: PANTOPRAZOLE 40 MG TAB PO SCH (11:57)
[2023-01-31] MEDS ORDERED: LACTULOSE 20Gm/30ML SOLN PO PRN (12:45)
[2023-01-31] MEDS: SODIUM FERR GLUC 62.5MG/5ML 125 MG in SODIUM CHL 0.9% 100 ML IV SCH (13:20)
[2023-01-31] MEDS ORDERED: VALSARTAN 80 MG TAB PO ONE (16:45)
[2023-01-31] MEDS: MELATONIN 5 MG TAB PO SCH (21:29)
[2023-02-01] VITALS (15 sets, daily range): BP systolic 100–146; BP diastolic 51–64; PULSE 21–74; RESP 12–22; TEMP 98.4–98.9; O2SAT 91–100
[2023-02-01] MEDS: ALBUTEROL SULF 2.5 MG/0.5ML(0.5%) NEB SOLN NEB SCH ×4 (00:01→18:05)
[2023-02-01] MEDS: IPRATROPIUM BROM 0.5 MG/2.5ML INH SOL NEB SCH ×4 (00:02→18:05)
[2023-02-01] MEDS: ACETAMINOPHEN 325 MG TAB PO PRN (03:48)
[2023-02-01] MEDS: FUROSEMIDE 100 MG/10ML VIAL IV SCH ×2 (05:59→18:00)
[2023-02-01] MEDS: LEVOTHYROXINE SODIUM 50 MCG TAB PO SCH (05:59)
[2023-02-01] MEDS: HYDROcodone-ACET 5/325MG TAB PO PRN ×2 (05:59→14:07)
[2023-02-01] MEDS: AMPICILLIN INJ 1 GM in SODIUM CHL 0.9% 100 ML IV SCH ×3 (06:00→22:49)
[2023-02-01] MEDS: LACTULOSE 20Gm/30ML SOLN PO SCH (06:00)
[2023-02-01] MEDS: ACCU-CHEK COMFORT CURVE STRIP VI SCH ×4 (06:00→22:58)
[2023-02-01] MEDS: InsuLIN REG 1unit/0.01ml Soln (100units/ml) SC SCH ×7 (06:11→22:28)
[2023-02-01] MEDS: INSULIN LANTUS (GLARGINE) 1 /0.01ml (100units/ml) SC SCH (06:12)
[2023-02-01 06:39] LABS: Basophils # (auto) 0.1 10 ^3/uL (0-0.2); Basophils % (auto) 0.4 % (0.0-2.0); Eosinophils # (auto) 0 10 ^3/uL (0-0.8); Eosinophils % (auto) 0.2 % (0.0-7.0); Hematocrit 30.4 % (36.0-46.0); Hemoglobin 9.8 g/dL (12.2-16.2); Lymphocytes # (auto) 0.8 10 ^3/uL (0.4-5.4); Lymphocytes % (auto) 4.7 % (10.0-50.0); Mean Corpuscular Hemoglobin 30.9 pg (28.0-32.0); Mean Corpuscular Hgb Conc. 32.2 g/dL (32.0-36.0); Monocytes # (auto) 1.2 10 ^3/uL (0-1.3); Monocytes % (auto) 6.6 % (0.0-12.0); Neutrophils # (auto) 15.9 10 ^3/uL (1.6-8.6); Neutrophils % (auto) 88.1 % (37.0-80.0); Nucleated Red Blood Cells % 0.1 %; Red Blood Cells 3.17 10^6/uL (4.0-5.20); Red Cell Distribution Width 14.9 % (11.8-14.3); White Blood Cell 18.1 10^3/uL (4.4-10.8)
[2023-02-01 06:50] LABS: Chloride 97 mmol/L (98-107); Potassium 3.2 mmol/L (3.5-5.1); Sodium 137 mmol/L (136-145)
[2023-02-01 06:51] LABS: Anion Gap 7 (5-15); Calcium 9.1 mg/dL (8.7-10.4); Carbon Dioxide 33 mmol/L (20-30)
[2023-02-01 06:56] LABS: Folate (Folic Acid) > 24.00 ng/mL (>5.38); Glucose 200 mg/dL (74-106)
[2023-02-01 06:59] LABS: Blood Urea Nitrogen 47 mg/dL (9-23)
[2023-02-01] MEDS ORDERED: POTASSIUM EFFERVESENT TAB 25 MEQ PO ONE (07:45)
[2023-02-01] MEDS: cefTRIAXone 1GM/50ML D5W 50 ML IV SCH (08:45)
[2023-02-01] MEDS: SEVELAMER 800 MG TAB PO SCH ×2 (08:45→12:00)
[2023-02-01] MEDS: METOPROLOL TARTRATE 50 MG TAB PO SCH ×2 (10:50→22:38)
[2023-02-01] MEDS: PANTOPRAZOLE 40 MG TAB PO SCH (10:50)
[2023-02-01] MEDS: DOCUSATE SOD 100 MG CAP PO SCH ×2 (10:50→22:38)
[2023-02-01] MEDS: CITALOPRAM HYDROBR 20 MG TAB PO SCH (10:50)
[2023-02-01] MEDS: amLODIPine BESYLATE 5 MG TAB PO SCH (10:51)
[2023-02-01] MEDS: FLUTICASONE PROP NASAL SPR 0.05 % (50MCG) 16GM EACHNOSTRI SCH ×2 (10:52→22:32)
[2023-02-01] MEDS: VALSARTAN 80 MG TAB PO SCH (14:06)
[2023-02-01] MEDS: MELATONIN 5 MG TAB PO SCH (22:39)
[2023-02-02] VITALS (15 sets, daily range): BP systolic 136–151; BP diastolic 57–70; PULSE 59–91; RESP 14–24; TEMP 97.6–98.8; O2SAT 90–99
[2023-02-02] MEDS: IPRATROPIUM BROM 0.5 MG/2.5ML INH SOL NEB SCH ×4 (05:17→20:29)
[2023-02-02] MEDS: ALBUTEROL SULF 2.5 MG/0.5ML(0.5%) NEB SOLN NEB SCH ×4 (05:17→20:29)
[2023-02-02 06:31] LABS: Basophils # (auto) 0.1 10 ^3/uL (0-0.2); Basophils % (auto) 0.6 % (0.0-2.0); Eosinophils # (auto) 0.1 10 ^3/uL (0-0.8); Eosinophils % (auto) 0.3 % (0.0-7.0); Hematocrit 32.4 % (36.0-46.0); Hemoglobin 10.2 g/dL (12.2-16.2); Lymphocytes # (auto) 0.9 10 ^3/uL (0.4-5.4); Lymphocytes % (auto) 4.5 % (10.0-50.0); Mean Corpuscular Hemoglobin 30.1 pg (28.0-32.0); Mean Corpuscular Hgb Conc. 31.6 g/dL (32.0-36.0); Mean Corpuscular Volume 95.3 fL (80.0-100.0); Monocytes # (auto) 1.4 10 ^3/uL (0-1.3); Neutrophils # (auto) 17.2 10 ^3/uL (1.6-8.6); Neutrophils % (auto) 87.6 % (37.0-80.0); White Blood Cell 19.6 10^3/uL (4.4-10.8)
[2023-02-02] MEDS: AMPICILLIN INJ 1 GM in SODIUM CHL 0.9% 100 ML IV SCH (06:37)
[2023-02-02] MEDS: FUROSEMIDE 100 MG/10ML VIAL IV SCH ×2 (06:47→17:19)
[2023-02-02] MEDS: LEVOTHYROXINE SODIUM 50 MCG TAB PO SCH (06:47)
[2023-02-02] MEDS: InsuLIN REG 1unit/0.01ml Soln (100units/ml) SC SCH ×5 (06:49→22:52)
[2023-02-02] MEDS: ACCU-CHEK COMFORT CURVE STRIP VI SCH ×4 (06:50→22:37)
[2023-02-02] MEDS: INSULIN LANTUS (GLARGINE) 1 /0.01ml (100units/ml) SC SCH (06:50)
[2023-02-02 06:52] LABS: Alanine Aminotransferase 11 U/L (7-40); Albumin 4.6 g/dL (3.2-4.8); Alkaline Phosphatase 84 U/L (46-116); Anion Gap 8 (5-15); Aspartate Aminotransferase 19 U/L (13-40); BUN/Creatinine Ratio 27.1 (10.0-20.0); Bilirubin, Total 0.4 mg/dL (0.2-1.0); Blood Urea Nitrogen 46 mg/dL (9-23); Calcium 9.2 mg/dL (8.7-10.4); Carbon Dioxide 33 mmol/L (20-30); Chloride 97 mmol/L (98-107); Glucose 121 mg/dL (74-106); Magnesium 1.7 mg/dL (1.6-2.6); Potassium 3.9 mmol/L (3.5-5.1); Sodium 138 mmol/L (136-145); Total Protein 7.2 g/dL (5.7-8.2)
[2023-02-02] MEDS: HYDROcodone-ACET 5/325MG TAB PO PRN ×2 (06:55→22:35)
[2023-02-02] MEDS: DOCUSATE SOD 100 MG CAP PO SCH ×2 (10:35→22:37)
[2023-02-02] MEDS: ACETAMINOPHEN 325 MG TAB PO PRN (10:37)
[2023-02-02] MEDS: VALSARTAN 80 MG TAB PO SCH (10:38)
[2023-02-02] MEDS: amLODIPine BESYLATE 5 MG TAB PO SCH (10:39)
[2023-02-02] MEDS: PANTOPRAZOLE 40 MG TAB PO SCH (10:40)
[2023-02-02] MEDS: METOPROLOL TARTRATE 50 MG TAB PO SCH ×2 (10:42→22:36)
[2023-02-02] MEDS: CITALOPRAM HYDROBR 20 MG TAB PO SCH (10:43)
[2023-02-02] MEDS: cefTRIAXone 1GM/50ML D5W 50 ML IV SCH (10:44)
[2023-02-02] MEDS: FLUTICASONE PROP NASAL SPR 0.05 % (50MCG) 16GM EACHNOSTRI SCH (11:39)
[2023-02-02 12:04] LABS: Hepatitis B Surface Antibody Negative (Negative)
[2023-02-02] MEDS: PIPERACILLIN-TAZOB 3.375GM 100 ML IV SCH ×2 (14:48→22:37)
[2023-02-02] MEDS: MELATONIN 5 MG TAB PO SCH (22:36)
[2023-02-03] VITALS (14 sets, daily range): BP systolic 131–148; BP diastolic 60–64; PULSE 54–73; RESP 14–20; TEMP 36.8; O2SAT 91–99
[2023-02-03] MEDS: IPRATROPIUM BROM 0.5 MG/2.5ML INH SOL NEB SCH ×3 (00:37→12:28)
[2023-02-03] MEDS: ALBUTEROL SULF 2.5 MG/0.5ML(0.5%) NEB SOLN NEB SCH ×3 (00:37→12:28)
[2023-02-03] MEDS: FUROSEMIDE 100 MG/10ML VIAL IV SCH ×2 (05:13→17:31)
[2023-02-03] MEDS: FLUTICASONE PROP NASAL SPR 0.05 % (50MCG) 16GM EACHNOSTRI SCH ×2 (05:16→09:43)
[2023-02-03] MEDS: PIPERACILLIN-TAZOB 3.375GM 100 ML IV SCH ×2 (05:17→14:21)
[2023-02-03] MEDS: ACCU-CHEK COMFORT CURVE STRIP VI SCH ×3 (06:04→17:32)
[2023-02-03] MEDS: LEVOTHYROXINE SODIUM 50 MCG TAB PO SCH (06:13)
[2023-02-03] MEDS: InsuLIN REG 1unit/0.01ml Soln (100units/ml) SC SCH ×3 (06:17→17:32)
[2023-02-03] MEDS: INSULIN LANTUS (GLARGINE) 1 /0.01ml (100units/ml) SC SCH (06:18)
[2023-02-03] MEDS: HYDROcodone-ACET 5/325MG TAB PO PRN ×2 (06:41→18:29)
[2023-02-03 07:59] LABS: Basophils # (auto) 0 10 ^3/uL (0-0.2); Basophils % (auto) 0.3 % (0.0-2.0); Eosinophils # (auto) 0.1 10 ^3/uL (0-0.8); Eosinophils % (auto) 0.5 % (0.0-7.0); Hematocrit 28.7 % (36.0-46.0); Hemoglobin 9.2 g/dL (12.2-16.2); Lymphocytes # (auto) 0.9 10 ^3/uL (0.4-5.4); Lymphocytes % (auto) 6.5 % (10.0-50.0); Mean Corpuscular Hemoglobin 30.4 pg (28.0-32.0); Mean Corpuscular Hgb Conc. 32.1 g/dL (32.0-36.0); Mean Corpuscular Volume 94.6 fL (80.0-100.0); Monocytes % (auto) 7.1 % (0.0-12.0); Neutrophils # (auto) 11.9 10 ^3/uL (1.6-8.6); Neutrophils % (auto) 85.6 % (37.0-80.0); Red Blood Cells 3.03 10^6/uL (4.0-5.20); Red Cell Distribution Width 15.1 % (11.8-14.3); White Blood Cell 13.9 10^3/uL (4.4-10.8)
[2023-02-03 08:17] LABS: Carbon Dioxide 32 mmol/L (20-30)
[2023-02-03 08:18] LABS: Calcium 8.8 mg/dL (8.5-10.1)
[2023-02-03 08:22] LABS: BUN/Creatinine Ratio 25.9 (10.0-20.0); Blood Urea Nitrogen 48 mg/dL (9-23); Glucose 189 mg/dL (74-106)
[2023-02-03 09:00] LABS: Anion Gap 8 (5-15); Chloride 97 mmol/L (98-107); Potassium 3.4 mmol/L (3.5-5.1); Sodium 137 mmol/L (136-145)
[2023-02-03 09:07] LABS: Magnesium 1.7 mg/dL (1.6-2.6)
[2023-02-03] MEDS: CITALOPRAM HYDROBR 20 MG TAB PO SCH (09:44)
[2023-02-03] MEDS: METOPROLOL TARTRATE 50 MG TAB PO SCH (09:45)
[2023-02-03] MEDS: DOCUSATE SOD 100 MG CAP PO SCH (09:45)
[2023-02-03] MEDS: VALSARTAN 80 MG TAB PO SCH (09:45)
[2023-02-03] MEDS: amLODIPine BESYLATE 5 MG TAB PO SCH (09:46)
[2023-02-03] MEDS: PANTOPRAZOLE 40 MG TAB PO SCH (09:46)
[2023-02-03 13:01] LABS: COVID19 ANTIGEN SOFIA FIA NEGATIVE (NEGATIVE)
[2023-02-03] MEDS ORDERED: POTASSIUM EFFERVESENT TAB 25 MEQ PO ONE (15:45)
== END 2023-02-03 18:40 | DRG 871 ==
LOC: EDBD 19:42 → ER 19:45 → TELE 01-23 00:47 → TELE-CENTR 01-23 10:35 → TELE-E-ADS 01-24 20:00 → TELE-EAST 02-03 05:00
PROVIDERS: ADMIT Nurse Practitioner; ATTEND Internal Medicine Pulmonary Disease
PROC: 5A09357 Assistance with Respiratory Ventilation, Less than 24 Consecutive Hours, Continuous Positive Airway Pressure (ICD-10-PCS; principal; 2023-01-23)
PROC: 5A09357 Assistance with Respiratory Ventilation, Less than 24 Consecutive Hours, Continuous Positive Airway Pressure (ICD-10-PCS; 2023-01-24)
PROC: 05HF33Z Insertion of Infusion Device into Left Cephalic Vein, Percutaneous Approach (ICD-10-PCS; 2023-01-24)
PROC: B54NZZA Ultrasonography of Left Upper Extremity Veins, Guidance (ICD-10-PCS; 2023-01-24)
PROC: 5A09357 Assistance with Respiratory Ventilation, Less than 24 Consecutive Hours, Continuous Positive Airway Pressure (ICD-10-PCS; 2023-01-25)
PROC: 5A1D70Z Performance of Urinary Filtration, Intermittent, Less than 6 Hours Per Day (ICD-10-PCS; 2023-01-26)
PROC: 5A09357 Assistance with Respiratory Ventilation, Less than 24 Consecutive Hours, Continuous Positive Airway Pressure (ICD-10-PCS; 2023-01-27)
PROC: 5A1D70Z Performance of Urinary Filtration, Intermittent, Less than 6 Hours Per Day (ICD-10-PCS; 2023-01-28)
PROC: 5A09357 Assistance with Respiratory Ventilation, Less than 24 Consecutive Hours, Continuous Positive Airway Pressure (ICD-10-PCS; 2023-01-28)
PROC: 5A09357 Assistance with Respiratory Ventilation, Less than 24 Consecutive Hours, Continuous Positive Airway Pressure (ICD-10-PCS; 2023-01-29)
PROC: 5A09357 Assistance with Respiratory Ventilation, Less than 24 Consecutive Hours, Continuous Positive Airway Pressure (ICD-10-PCS; 2023-01-30)
PROC: 5A09357 Assistance with Respiratory Ventilation, Less than 24 Consecutive Hours, Continuous Positive Airway Pressure (ICD-10-PCS; 2023-01-31)
PROC: 5A09357 Assistance with Respiratory Ventilation, Less than 24 Consecutive Hours, Continuous Positive Airway Pressure (ICD-10-PCS; 2023-02-01)
PROC: 5A09357 Assistance with Respiratory Ventilation, Less than 24 Consecutive Hours, Continuous Positive Airway Pressure (ICD-10-PCS; 2023-02-02)
PROC: 5A09357 Assistance with Respiratory Ventilation, Less than 24 Consecutive Hours, Continuous Positive Airway Pressure (ICD-10-PCS; 2023-02-03)
PROC: 06HY33Z Insertion of Infusion Device into Lower Vein, Percutaneous Approach (ICD-10-PCS; 2023-02-03)
DX: A41.9 Sepsis, unspecified organism (principal); I50.33 Acute on chronic diastolic (congestive) heart failure; J96.21 Acute and chronic respiratory failure with hypoxia; N17.0 Acute kidney failure with tubular necrosis; I13.0 Hypertensive heart and chronic kidney disease with heart failure and stage 1 through stage 4 chronic kidney disease, or unspecified chronic kidney disease; J44.1 Chronic obstructive pulmonary disease with (acute) exacerbation; L03.115 Cellulitis of right lower limb; L03.116 Cellulitis of left lower limb; Z68.43 Body mass index [BMI] 50.0-59.9, adult; D64.9 Anemia, unspecified; E11.22 Type 2 diabetes mellitus with diabetic chronic kidney disease; E66.01 Morbid (severe) obesity due to excess calories; I83.009 Varicose veins of unspecified lower extremity with ulcer of unspecified site; I87.2 Venous insufficiency (chronic) (peripheral); N18.32 Chronic kidney disease, stage 3b; E03.9 Hypothyroidism, unspecified; E83.39 Other disorders of phosphorus metabolism; E87.5 Hyperkalemia; F32.A Depression, unspecified; G47.30 Sleep apnea, unspecified; Z96.641 Presence of right artificial hip joint; Z87.891 Personal history of nicotine dependence; Z99.81 Dependence on supplemental oxygen
CPT/HCPCS: 36415; 36600; 71045; 76604; 78582; 80048; 80053; 80061; 80202; 81001; 82306; 82570; 82607; 82728; 82746; 82805; 82962; 83036; 83540; 83550; 83605; 83735; 83880; 83970; 84100; 84156; 84300; 84443; 84484; 85025; 85379; 85610; 85730; 86705; 86706; 86803; 86850; 86900; 86901; 87040; 87077; 87086; 87186; 87205; 87340; 87426; 87804; 90935; 93005; 93306; 93970; 94640; 94660; 96374; 96375; 97110; 97116; 97163; 97530; 99291; G0378; J0692; J0696; J1642; J1815; J1956; J2405; J2543; P9047